=== PATIENT | male | born 1980 | race Caucasian/White ===

== ENCOUNTER 2023-08-27 15:17 | Emergency (ER) | payer OTHER, SELFPAY ==
[2023-08-27 15:21] VITALS: BP 144/88; BMI 46.5
--- NOTE | 2023-08-27 15:56 | ED.GENMED ---
History of Present Illness
General
Chief Complaint: Abdominal Pain
Source: patient
Exam Limitations: none
Time Seen by Provider: 08/27/23 15:43
Travel History
Have you had any contact with someone who has COVID-19?: No
Do you have any symptoms of coronavirus? Fever > 100 degrees, chills, cough, shortness of breath, sore throat, loss of taste or smell, muscle aches, or headache?: No
History of Present Illness
History of Present Illness:
42-year-old male presents complaining of hematuria onset today preceded by lower abdominal and lower back pain. The back pain is more on the left side. Lower abdominal pain is intermittent sometimes sharp. Pain is nauseous without vomiting. Does
have history of kidney stones. He remembers is feeling different and never noticed any blood in his urine like this. He is not a smoker. He is on an SSRI for anxiety. No known injury. No change in bowel movements. No other complaints at this
time
Past History
Past History
ED Past Medical History: Other (Kidney stones diagnosed) and Other (desmoid tumors)
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
Social History
Tobacco: Non-smoker
Alcohol: Occasional
Drug: None
Personal:
Living: with family
Employment: Employed
Family History
Family History: Other (Stance); Negative Diabetes, Hypertension, Early CAD, Asthma or Cancer
Phy Exam
Physical Exam
Physical Exam:
General: Well-appearing male no acute respiratory distress
HEENT: Normocephalic atraumatic
Heart: Regular rate and rhythm no murmurs
Lungs: Clear to auscultation bilaterally no wheezing
Abdomen: Soft tender to the suprapubic and left lower quadrant. No guarding or rebound normal bowel sounds nondistended no significant costovertebral angle tenderness
Extremities: No cyanosis
Course
Orders/Labs/Results
Orders:
Orders
08/27/23 15:55
CT Abd/pel Without Iv Or Oral Urgent
Comment:
Reason For Exam: hematuria, lower abdominal pain
Ketorolac [Toradol] 30 mg IV NOW STA
08/27/23 16:01
Complete Blood Count/With Diff Urgent
Comprehensive Metabolic Panel Urgent
Urinalysis Reflex To Culture Urgent
Date Specimen was Collected: 08/27/23
Time Specimen was Collected: 15:59
Urine Microscopic Reflex Cult Urgent
Urine Culture Urgent
PEDRO Source: U
Specimen Description:
Date Specimen was Collected: 08/27/23
Time Specimen was Collected: 15:59
Abnormal Lab Results
08/27/23
16:01
Absolute Lymphs (auto) 1.1 L 10^3/uL
(1.2-3.4)
Lymphocytes % 19.0 L %
(20.5-51.1)
Monocytes % 9.7 H %
(1.7-9.3)
Glucose 103 H mg/dl
(70-99)
Urine Ketones Trace A
(Negative)
Ur Occult Blood Reflex 4+ A
(Negative)
Urine Bilirubin 1+ A
(Negative)
Urine Urobilinogen 2+ A
(Neg - 1+)
Leukocyte Esterase Rfl 1+ A
(Negative)
Urine RBC >100 A /HPF
(0-2)
Urine Albumin (Reflex) 2+ A
(Neg - Trace)
08/27/23 16:01
08/27/23 16:01
Vital Signs
Initial and Last Documented VS:
Initial Vital Signs
Temp Pulse Resp BP Pulse Ox
98.6 F 92 16 144/88 96
08/27/23 15:21 08/27/23 15:21 08/27/23 15:21 08/27/23 15:21 08/27/23 15:21
Last Documented Vital Signs
Temp Pulse Resp BP Pulse Ox
98.6 F 92 16 144/88 96
08/27/23 15:21 08/27/23 15:21 08/27/23 15:21 08/27/23 15:21 08/27/23 15:21
MDM/Problems Addressed
Differential Diagnosis Includes:
Dark urine likely hematuria. Consider cystitis versus kidney stone. Lower abdominal pain. Consider diverticulitis versus renal colic. Patient is not a smoker.
Will run urinalysis. Check labs and do CT. Toradol ordered for symptoms
*Critical Care Note
Total Time (30-74mins, 75-104mins- exclusive of procedures): Not Applicable
Update Note
Update Note:
Patient reexamined feeling better. Urinalysis with hematuria but no sign of infection. Labs reviewed with normal kidney functions. CT demonstrates 4 mm stone at the right UPJ. Suspect hematuria may be related to the kidney stone. Either way
would recommend close follow-up with urology to ensure resolution of the hematuria. Will send prescription to pharmacy electronically. Return precautions were given.
ED Attending Note
-
Portions of this chart may have been created with voice recognition software.� Occasional wrong word or��sound alike� substitutions may have occurred due to the inherent limitations of voice recognition software.
Discharge Plan
Departure
Patient Disposition: Home (Routine Discharge)
Date of Disposition: 08/27/23
Time of Disposition: 17:01
Patient with high blood pressure during this ER visit?: No
Discharge Problem:
Kidney stone
Instructions: Kidney Stone, Adult ED
Prescriptions:
New
hydrocodone-acetaminophen 5-325 mg tablet
1 tab PO Q8H PRN (Reason: Pain) Qty: 10 0RF
tamsulosin [Flomax] 0.4 mg capsule
0.4 mg PO DAILY Qty: 14 0RF
ondansetron 4 mg tablet,disintegrating
4 mg PO Q8H PRN (Reason: nausea and vomiting) Qty: 10 0RF
No Action
escitalopram oxalate [Lexapro] 20 mg Tablet
20 mg PO DAILY
Referrals:
Lux Hinojosa MD [Family Provider] -
Loy Garcia MD [Active] -
Activity Restrictions/Additional Instructions:
Drink plenty fluids. Use prescribed medicine as directed. Please return here for increasing pain vomiting fever or other concerning finding. Otherwise follow-up with urology to ensure resolution of blood in the urine
Interventions
Interventions:
*Risk Screen - Suicide Last Done: 08/27/23 15:21
*Neglect/Abuse Screening Last Done: 08/27/23 15:21
ED- Fall Risk Assessment Last Done: 08/27/23 16:12
*ED COVID-19 Vaccine History Last Done: 08/27/23 15:21
[facility]-Cmprdf-Vobmzidech Assessment Last Done: 08/27/23 16:12
[2023-08-27] MEDS: TORADOL 30 MG IV (16:04)
[2023-08-27 16:15] LABS: % Basophils 0.5 % (0-2); % Eosinophils 2.1 % (0-6); % Immature Granulocytes 0.2 % (0-0.5); % Monocytes 9.7 % (1.7-9.3); % Neutrophils 68.5 % (42.2-75.2); Absolute Eosinophils 0.1 10^3/uL (0-0.7); Absolute Lymphocytes 1.1 10^3/uL (1.2-3.4); Absolute Monocytes 0.6 10^3/uL (0.1-0.6); Absolute Neutrophils 3.9 10^3/uL (1.4-6.5); Hematocrit 45.3 % (39.0-52.0); Mean Corp Hgb Conc. 35.3 g/dL (33.0-37.0); Mean Corpuscular Hgb 29.7 pg (27.0-31.0); Mean Corpuscular Volume 84.2 fL (80.0-94.0); Mean Platelet Volume 9.7 fL (7.4-10.4); Nucleated Red Blood Cells % 0 % (-); Platelet Count 197 10^3/uL (130-400); Red Blood Cell Count 5.38 10^6/uL (4.70-6.10); Red Cell Dist. Width 12.3 % (11.5-14.5); Urine Albumin 2+ (Neg - Trace); Urine Bilirubin 1+ (Negative); Urine Character Very Cloudy (Clear); Urine Color Red; Urine Glucose Negative (Negative); Urine Ketone Trace (Negative); Urine Leukocyte 1+ (Negative); Urine Nitrite Negative (Negative); Urine Occult Blood 4+ (Negative); Urine Urobilinogen 2+ (Neg - 1+); Urine pH 6.5 (5.0-9.0); White Blood Cell Count 5.7 10^3/uL (4.8-10.8)
[2023-08-27 16:20] LABS: Urine Red Blood Cell >100 /HPF (0-2); Urine Squamous Cell 0-2 /LPF (Few)
[2023-08-27 16:31] LABS: ALT (SGPT) 40 U/L (0-50); AST (SGOT) 29 U/L (17-59); Albumin 4.1 g/dl (3.5-5.0); Alkaline Phosphatase 75 U/L (38-126); Blood Urea Nitrogen 11 mg/dl (9-20); Calcium 9.2 mg/dl (8.4-10.2); Carbon Dioxide 24 mmol/L (22-30); Chloride 105 mmol/L (98-107); Estimated Creatinine Clearance > 125 ml/min; Glucose 103 mg/dl (70-99); Potassium 3.8 mmol/L (3.5-5.1); Sodium 139 mmol/L (135-145); Total Bilirubin 0.7 mg/dl (0.2-1.3); Total Protein 6.5 g/dl (6.3-8.2); eGFR > 60.00
== END 2023-08-27 17:42 | disposition home or self-care (01) ==
LOC: EMR 15:17
PROVIDERS: Physician Assistant; EMERGENCY PHYSICIAN Emergency Medicine; FAMILY PHYSICIAN Family Medicine
DX: N20.2 Calculus of kidney with calculus of ureter (principal); M54.50 Low back pain, unspecified; F41.9 Anxiety disorder, unspecified; Z82.49 Family history of ischemic heart disease and other diseases of the circulatory system; Z87.442 Personal history of urinary calculi
CPT/HCPCS: 99284; 96374; 74176; 80053; 81003; 81015; 85025; 87086

== ENCOUNTER 2023-09-20 09:22 | Emergency (ER) | payer OTHER, SELFPAY ==
[2023-09-20 09:32] VITALS: BP 124/87
[2023-09-20 10:02] LABS: % Basophils 0.4 % (0-2); % Eosinophils 2.2 % (0-6); % Immature Granulocytes 0.4 % (0-0.5); % Lymphocytes 15.4 % (20.5-51.1); % Monocytes 8.8 % (1.7-9.3); % Neutrophils 72.8 % (42.2-75.2); Absolute Eosinophils 0.2 10^3/uL (0-0.7); Absolute Monocytes 0.6 10^3/uL (0.1-0.6); Absolute Neutrophils 4.8 10^3/uL (1.4-6.5); Mean Corp Hgb Conc. 36.2 g/dL (33.0-37.0); Mean Corpuscular Hgb 30.5 pg (27.0-31.0); Mean Corpuscular Volume 84.2 fL (80.0-94.0); Mean Platelet Volume 9.6 fL (7.4-10.4); Nucleated Red Blood Cells % 0 % (-); Platelet Count 194 10^3/uL (130-400); Red Blood Cell Count 5.58 10^6/uL (4.70-6.10); Red Cell Dist. Width 12.3 % (11.5-14.5); White Blood Cell Count 6.7 10^3/uL (4.8-10.8)
--- NOTE | 2023-09-20 10:14 | ED.GENMED ---
History of Present Illness
General
Chief Complaint: Flank Pain
Source: patient
Time Seen by Provider: 09/20/23 10:08
Travel History
Have you had any contact with someone who has COVID-19?: No
Do you have any symptoms of coronavirus? Fever > 100 degrees, chills, cough, shortness of breath, sore throat, loss of taste or smell, muscle aches, or headache?: No
History of Present Illness
History of Present Illness:
42-year-old male presenting the emergency department for evaluation of right-sided flank pain that began acutely around 8 PM yesterday feeling similar to previous history of kidney stones, this morning pain continued and worsened described to be a
constant aching sensation with intermittent sharper bursts of pain, currently 8 out of 10, did not take anything for pain this morning. He notes associated nausea with 1 episode of nonbloody nonbilious emesis, urinary frequency/urgency but no
dysuria or hematuria, testicular pain or edema, fevers, chills, rigors or any other concerns. Patient states he was here last month for similar presentation and was diagnosed with kidney stones and was also found to have a stone in the right kidney
as well.
Past History
Past History
ED Past Medical History: Other (Kidney stones diagnosed) and Other (desmoid tumors)
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
Social History
Tobacco: Non-smoker
Alcohol: Occasional
Drug: None
Personal:
Living: with family
Employment: Employed
Family History
Family History: Other (Stance); Negative Diabetes, Hypertension, Early CAD, Asthma or Cancer
Review of Systems
Review of Systems
All Other Systems: ROS reviewed and negative except as documented in HPI and ROS
Phy Exam
Physical Exam
Physical Exam:
GENERAL: Alert , appears uncomfortable and unable to sit still
EYE: Clear conjunctiva
NECK: Supple
ENT: o/p clr, mmm.
ABDOMEN: Soft, without focal tenderness, no r/g, right-sided flank tenderness
NEUROLOGICAL: Alert and oriented,
SKIN: Warm and dry, skin intact.
MUSCULOSKELETAL: No edema, well perfused.
PSYCH: Normal and appropriate interaction.
Scores
Heart Failure Risk
Heart Failure Risk Score: Not Applicable
Heart Score for Chest Pain Patients
STEMI patient?: Not applicable
Withdrawal Assessment of Alcohol
Withdrawal Assessment Completed?: Not applicable
Course
Orders/Labs/Results
Orders:
Orders
09/20/23 09:45
Complete Blood Count/With Diff Urgent
Comprehensive Metabolic Panel Urgent
09/20/23 10:13
CT Abd/pel Without Iv Or Oral Urgent
Comment:
Reason For Exam: right flank pain, hx stones
0.9% Sodium Chloride 1000 ml [Nss] 1,000 ml IV BOLUS
Ketorolac [Toradol] 30 mg IV NOW STA
Ondansetron Injectable [Zofran] 4 mg IV NOW STA
09/20/23 10:29
Urinalysis Reflex To Culture Urgent
Date Specimen was Collected: 09/20/23
Time Specimen was Collected: 09:37
Urine Microscopic Reflex Cult Urgent
09/20/23 11:27
Morphine Sulfate 4 mg IV NOW STA
Abnormal Lab Results
09/20/23 09/20/23
09:45 10:29
Absolute Lymphs (auto) 1.0 L 10^3/uL
(1.2-3.4)
Lymphocytes % 15.4 L %
(20.5-51.1)
Chloride 108 H mmol/L
(98-107)
Glucose 107 H mg/dl
(70-99)
Urine Ketones Trace A
(Negative)
Ur Occult Blood Reflex 4+ A
(Negative)
Urine Bilirubin 1+ A
(Negative)
Leukocyte Esterase Rfl Trace A
(Negative)
Urine RBC 16-20 A /HPF
(0-2)
Urine Bacteria (Reflex) Few A
(Negative)
09/20/23 09:45
09/20/23 09:45
Vital Signs
Initial and Last Documented VS:
Initial Vital Signs
Temp Pulse Resp BP Pulse Ox
97.8 F 112 16 124/87 97
09/20/23 09:32 09/20/23 09:32 09/20/23 09:32 09/20/23 09:32 09/20/23 09:32
Last Documented Vital Signs
Temp Pulse Resp BP Pulse Ox
97.8 F 72 16 124/87 98
09/20/23 09:32 09/20/23 11:34 09/20/23 11:34 09/20/23 09:32 09/20/23 11:34
MDM/Problems Addressed
Differential Diagnosis Includes:
Renal/ureteral colic, less concern for cystitis or pyelonephritis, musculoskeletal etiology
MDM/Problems Addressed:
42-year-old male present emergency department for evaluation of sudden onset right flank pain, similar to previous episodes of kidney stones in the past. Patient had nausea and vomiting accompanied with urinary frequency/urgency this morning. Has
yet to take anything for pain. Will treat with Toradol, Zofran and fluids. Lab work and urinalysis were ordered from triage. CT of the abdomen pelvis ordered as well.
*Radiology
Radiology exam reviewed: radiology read reviewed
*Pulse Oximetry
Patient hypoxic: no
*Critical Care Note
Total Time (30-74mins, 75-104mins- exclusive of procedures): Not Applicable
Data Reviewed
Review of Other/Old Records Reveals: Labs, Records and Radiology Studies
Source: patient
Comment
Comment:
On reevaluation patient still notes some discomfort following Toradol although does note some improvement. CT scan did show a 6 mm UPJ stone with mild hydronephrosis but there is no evidence for renal dysfunction. Will treat with additional 4 mg
of morphine and reassess following.
Patient Management
Escalation/DeEscalation of care consider admission/obs:
Following morphine patient's pain is significantly improved and he feels well to be discharged home. Prescriptions for naproxen, oxycodone and Flomax were sent to pharmacy. He will follow-up with his urologist as needed. Aware of return
precautions emergency department but otherwise stable for discharge home.
ED Attending Note
-
Portions of this chart may have been created with voice recognition software.� Occasional wrong word or��sound alike� substitutions may have occurred due to the inherent limitations of voice recognition software.
Discharge Plan
Departure
Patient Disposition: Home (Routine Discharge)
Date of Disposition: 09/20/23
Time of Disposition: 12:11
Patient with high blood pressure during this ER visit?: No
Discharge Problem:
Ureterolithiasis
Instructions: Kidney Stones (DC)
Prescriptions:
New
naproxen 500 mg tablet
500 mg PO BID PRN (Reason: Pain) Qty: 20 0RF
tamsulosin [Flomax] 0.4 mg capsule
0.4 mg PO DAILY Qty: 20 0RF
oxycodone 5 mg tablet
5 mg PO Q6H PRN (Reason: Pain) Qty: 10 0RF
No Action
escitalopram oxalate [Lexapro] 20 mg Tablet
20 mg PO DAILY
hydrocodone-acetaminophen 5-325 mg tablet
1 tab PO Q8H PRN (Reason: Pain) Qty: 10 0RF
tamsulosin [Flomax] 0.4 mg capsule
0.4 mg PO DAILY Qty: 14 0RF
ondansetron 4 mg tablet,disintegrating
4 mg PO Q8H PRN (Reason: nausea and vomiting) Qty: 10 0RF
Referrals:
Lux Hinojosa MD [Family Provider] -
Interventions
Interventions:
*Risk Screen - Suicide Last Done: 09/20/23 09:32
*General Assessment Last Done: 09/20/23 09:32
*Neglect/Abuse Screening Last Done: 09/20/23 09:32
[facility]-Huhbum-Jszpskavyo Assessment Last Done: 09/20/23 10:25
ED-Male Genitourinary Assessment Last Done: 09/20/23 10:25
Discharge Date and Time
Print Language: LIBERIAN
[2023-09-20 10:15] LABS: ALT (SGPT) 46 U/L (0-50); AST (SGOT) 25 U/L (17-59); Albumin 4.3 g/dl (3.5-5.0); Alkaline Phosphatase 91 U/L (38-126); Blood Urea Nitrogen 15 mg/dl (9-20); Calcium 9.4 mg/dl (8.4-10.2); Carbon Dioxide 23 mmol/L (22-30); Chloride 108 mmol/L (98-107); Glucose 107 mg/dl (70-99); Potassium 3.9 mmol/L (3.5-5.1); Sodium 137 mmol/L (135-145); Total Protein 6.8 g/dl (6.3-8.2); eGFR > 60.00
[2023-09-20] MEDS: NSS 1000 IV (10:30)
[2023-09-20] MEDS: TORADOL 30 MG IV (10:30)
[2023-09-20] MEDS: ZOFRAN 4 MG IV (10:30)
[2023-09-20 10:40] LABS: Urine Albumin Trace (Neg - Trace); Urine Bilirubin 1+ (Negative); Urine Character Slightly Cloudy (Clear); Urine Color Yellow; Urine Glucose Negative (Negative); Urine Ketone Trace (Negative); Urine Leukocyte Trace (Negative); Urine Nitrite Negative (Negative); Urine Occult Blood 4+ (Negative); Urine Urobilinogen Negative (Neg - 1+)
[2023-09-20 10:51] LABS: Urine Bacteria Few (Negative); Urine Mucus Many; Urine Red Blood Cell 16-20 /HPF (0-2)
[2023-09-20] MEDS: MORPHINE SULFATE 4 MG IV (11:31)
== END 2023-09-20 13:35 | disposition home or self-care (01) ==
LOC: EMR 09:22
PROVIDERS: EMERGENCY PHYSICIAN Emergency Medicine; FAMILY PHYSICIAN Family Medicine
DX: N13.2 Hydronephrosis with renal and ureteral calculous obstruction (principal); Z87.442 Personal history of urinary calculi
CPT/HCPCS: 99284; 96374; 96375 ×2; 96361; 74176; 80053; 81003; 81015; 85025

== ENCOUNTER 2023-09-25 18:27 | Emergency (ER) | payer OTHER, SELFPAY ==
[2023-09-25] VITALS (7 sets, daily range): BP systolic 134–183; BP diastolic 76–115; BMI 44.3
--- NOTE | 2023-09-25 18:59 | ED.GENMED ---
History of Present Illness
General
Chief Complaint: Flank Pain
Source: patient
Time Seen by Provider: 09/25/23 18:42
Travel History
Have you had any contact with someone who has COVID-19?: No
Do you have any symptoms of coronavirus? Fever > 100 degrees, chills, cough, shortness of breath, sore throat, loss of taste or smell, muscle aches, or headache?: No
History of Present Illness
History of Present Illness:
42-year-old male presents to the emergency room complaining of right flank pain. Patient was actually here in the emergency room about 1 week ago with right flank pain. At that time he was found to have a 6mm stone at the right UPJ. The pain
persisted for couple days but went away only to return again yesterday. No fever or chills. Patient was also seen here in the emergency room about 1 month ago with right flank pain. That time he was found to have a 4 mm stone at the UPJ. Patient
does have an appointment with urology this coming Tuesday. He took ibuprofen for pain yesterday. Nothing today.
Past History
Past History
ED Past Medical History: Other (Kidney stones diagnosed) and Other (desmoid tumors)
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
Social History
Tobacco: Non-smoker
Alcohol: Occasional
Drug: None
Personal:
Living: with family
Employment: Employed
Family History
Family History: Other (Stance); Negative Diabetes, Hypertension, Early CAD, Asthma or Cancer
Phy Exam
Physical Exam
Physical Exam:
General: Awake, Alert, Oriented X3. No acute distress.
Vitals: unremarkable
Head: Atraumatic
Eyes: Pupils equal, EOMI
Throat: Airway intact, no exudates
Neck: Trachea midline
Lungs: Clear and equal b/l
Heart: Regular rate, no murmurs
Abd: Soft, mild right upper abdominal tenderness, No pulsatile mass
Back: Positive right CVA tenderness to percussion
Neuro: Nonfocal
Skin: Warm, dry, no rash
Extremities: pulses equal b/l, no edema
Course
Orders/Labs/Results
Orders:
Orders
09/25/23 18:55
0.9% Sodium Chloride 500 ml [Nss] 500 ml IV BOLUS
Ketorolac [Toradol] 15 mg IV NOW STA
CR Abdomen - 1 View Urgent
Comment:
Reason For Exam: right flank pain
09/25/23 18:56
US Renal With Bladder Urgent
Comment: bladder not full ok, looking at ureteral jets
Reason For Exam: right flank pain
09/25/23 19:13
Basic Metabolic Panel Urgent
Complete Blood Count/With Diff Urgent
Urinalysis Reflex To Culture Urgent
Date Specimen was Collected: 09/25/23
Time Specimen was Collected: 18:58
09/25/23 20:42
HYDROmorphone [Dilaudid] 1 mg IV NOW STA
09/25/23 20:45
Tamsulosin [Flomax] 0.4 mg PO NOW STA
Abnormal Lab Results
09/25/23
19:13
Monocytes % 10.1 H %
(1.7-9.3)
09/25/23 19:13
09/25/23 19:13
Vital Signs
Initial and Last Documented VS:
Initial Vital Signs
Temp Pulse Resp BP Pulse Ox
98.2 F 67 16 183/115 99
09/25/23 18:28 09/25/23 18:28 09/25/23 18:28 09/25/23 18:28 09/25/23 18:28
Last Documented Vital Signs
Temp Pulse Resp BP Pulse Ox
98.2 F 67 16 134/81 97
09/25/23 18:28 09/25/23 21:05 09/25/23 21:05 09/25/23 21:05 09/25/23 21:05
MDM/Problems Addressed
Differential Diagnosis Includes:
Kidney stone, cholecystitis, UTI, infected stone
MDM/Problems Addressed:
Patient presents with right flank pain for the third time the past couple months. CT performed in August showed what was done described as a 4 mm stone at the UPJ. CAT scan a week ago showed what is described as a 6 mm stone at the UPJ. I suspect
this is in fact the same stone as no other stones were seen in the right kidney on the CT in August.
The CT did not show any additional stones in the kidney. Size difference is likely explained by imaging technique. Will obtain labs to evaluate for signs of infected stone, send renal function. Will provide analgesia.
Labs are unremarkable. Ultrasound shows right hydro. Stones not visible on a flatplate. However it is quite apparent that the patient has been experiencing symptoms from the same stone over the past month. Fortunately there is no evidence of an
acute infected stone at this time. Patient has an appointment to follow with urology this week. Will discharge with adequate analgesia and Flomax to make it to that appointment. He understands to return if he has a fever.
*Radiology
Radiology exam reviewed: radiology read reviewed
*Pulse Oximetry
Patient hypoxic: no
*Critical Care Note
Total Time (30-74mins, 75-104mins- exclusive of procedures): Not Applicable
Data Reviewed
Review of Other/Old Records Reveals: Radiology Studies (From August and from 1 week ago)
Patient Management
Social determinants of health affecting care: Strong social support
ED Attending Note
-
Portions of this chart may have been created with voice recognition software.� Occasional wrong word or��sound alike� substitutions may have occurred due to the inherent limitations of voice recognition software.
Discharge Plan
Departure
Patient Disposition: Home (Routine Discharge)
Date of Disposition: 09/25/23
Time of Disposition: 20:43
Patient with high blood pressure during this ER visit?: Yes
Condition: Good
Discharge Problem:
Kidney stone on left side
Instructions: Kidney Stones (DC), BLOOD PRESSURE
Prescriptions:
New
oxycodone 5 mg tablet
5 mg PO Q6H PRN (Reason: Pain) Qty: 12 0RF
No Action
escitalopram oxalate [Lexapro] 20 mg Tablet
20 mg PO DAILY
hydrocodone-acetaminophen 5-325 mg tablet
1 tab PO Q8H PRN (Reason: Pain) Qty: 10 0RF
tamsulosin [Flomax] 0.4 mg capsule
0.4 mg PO DAILY Qty: 14 0RF
ondansetron 4 mg tablet,disintegrating
4 mg PO Q8H PRN (Reason: nausea and vomiting) Qty: 10 0RF
naproxen 500 mg tablet
500 mg PO BID PRN (Reason: Pain) Qty: 20 0RF
tamsulosin [Flomax] 0.4 mg capsule
0.4 mg PO DAILY Qty: 20 0RF
oxycodone 5 mg tablet
5 mg PO Q6H PRN (Reason: Pain) Qty: 10 0RF
Referrals:
Lux Hinojosa MD [Family Provider] -
Activity Restrictions/Additional Instructions:
Keep your appointment with urology on Tuesday even if you are feeling better. Return if you develop a fever.
Interventions
Interventions:
*Risk Screen - Suicide Last Done: 09/25/23 18:28
*General Assessment Last Done: 09/25/23 19:47
*Neglect/Abuse Screening Last Done: 09/25/23 18:28
ED- Fall Risk Assessment Last Done: 09/25/23 19:47
*ED COVID-19 Vaccine History Last Done: 09/25/23 18:28
*Nursing Disposition Last Done: 09/25/23 21:17
[facility]-Rcbpaf-Hldjzufrau Assessment Last Done: 09/25/23 19:47
ED-Male Genitourinary Assessment Last Done: 09/25/23 19:47
Discharge Date and Time
Discharge Date/Time: 09/25/23 21:19
Print Language: TAJIK
[2023-09-25] MEDS: TORADOL 15 MG IV (19:08)
[2023-09-25] MEDS: NSS 500 IV (19:12)
[2023-09-25 19:19] LABS: % Basophils 0.8 % (0-2); % Eosinophils 5.7 % (0-6); % Immature Granulocytes 0.2 % (0-0.5); % Lymphocytes 25.2 % (20.5-51.1); % Monocytes 10.1 % (1.7-9.3); Absolute Eosinophils 0.3 10^3/uL (0-0.7); Absolute Lymphocytes 1.2 10^3/uL (1.2-3.4); Absolute Monocytes 0.5 10^3/uL (0.1-0.6); Absolute Neutrophils 2.8 10^3/uL (1.4-6.5); Hematocrit 42.2 % (39.0-52.0); Mean Corp Hgb Conc. 35.5 g/dL (33.0-37.0); Mean Corpuscular Hgb 30.2 pg (27.0-31.0); Mean Corpuscular Volume 84.9 fL (80.0-94.0); Mean Platelet Volume 9.6 fL (7.4-10.4); Nucleated Red Blood Cells % 0 % (-); Platelet Count 151 10^3/uL (130-400); Red Blood Cell Count 4.97 10^6/uL (4.70-6.10); Red Cell Dist. Width 12.2 % (11.5-14.5); Urine Albumin Negative (Neg - Trace); Urine Bilirubin Negative (Negative); Urine Character Clear (Clear); Urine Color Yellow; Urine Glucose Negative (Negative); Urine Ketone Negative (Negative); Urine Leukocyte Negative (Negative); Urine Nitrite Negative (Negative); Urine Occult Blood Negative (Negative); Urine Specific Gravity 1.015 (<1.030); Urine Urobilinogen 1+ (Neg - 1+); White Blood Cell Count 4.8 10^3/uL (4.8-10.8)
[2023-09-25 19:37] LABS: Blood Urea Nitrogen 20 mg/dl (9-20); Calcium 9.2 mg/dl (8.4-10.2); Carbon Dioxide 28 mmol/L (22-30); Chloride 107 mmol/L (98-107); Estimated Creatinine Clearance > 125 ml/min; Glucose 95 mg/dl (70-99); Sodium 138 mmol/L (135-145); eGFR > 60.00
[2023-09-25] MEDS: FLOMAX 0.400000000000000022 MG PO (20:59)
[2023-09-25] MEDS: DILAUDID 1 MG IV (21:00)
== END 2023-09-25 21:19 | disposition home or self-care (01) ==
LOC: EMR 18:27
PROVIDERS: EMERGENCY PHYSICIAN Emergency Medicine; FAMILY PHYSICIAN Family Medicine
DX: N20.2 Calculus of kidney with calculus of ureter (principal); R03.0 Elevated blood-pressure reading, without diagnosis of hypertension; Z87.442 Personal history of urinary calculi
CPT/HCPCS: 99285; 96374; 96375; 96361; 74018; 76770; 80048; 81003; 85025

== ENCOUNTER 2023-09-29 06:25 | Day surgery (SDC) | payer OTHER, SELFPAY ==
[2023-09-29] VITALS (8 sets, daily range): BP systolic 103–130; BP diastolic 50–86
[2023-09-29] MEDS: NORMOSOL-R 1000 IV (08:35)
[2023-09-29] MEDS: Pyridium 200 MG PO (10:49)
[2023-09-29] MEDS: FLOMAX 0.400000000000000022 MG PO (10:49)
[2023-09-29] MEDS: DILAUDID 0.5 MG IV (10:50)
[2023-10-04 11:18] LABS: Stone Analysis Mass 27 mg
== END 2023-09-29 11:45 | disposition home or self-care (01) ==
LOC: SDS 06:25
PROVIDERS: ATTENDING PHYSICIAN Specialist
DX: N20.1 Calculus of ureter (principal)
CPT/HCPCS: 52356; 74420; 76000; 82365; C1758; C1894; C2617

== ENCOUNTER 2024-03-27 20:21 | Emergency (ER) | payer OTHER, SELFPAY ==
[2024-03-27 20:35] VITALS: BP 146/94
[2024-03-27 20:58] LABS: % Basophils 0.6 % (0-2); % Eosinophils 1.4 % (0-6); % Immature Granulocytes 0.4 % (0-0.5); % Lymphocytes 16.1 % (20.5-51.1); % Monocytes 9.7 % (1.7-9.3); % Neutrophils 71.8 % (42.2-75.2); Absolute Basophils 0.1 10^3/uL (0-0.2); Absolute Eosinophils 0.1 10^3/uL (0-0.7); Absolute Lymphocytes 1.4 10^3/uL (1.2-3.4); Absolute Monocytes 0.8 10^3/uL (0.1-0.6); Hematocrit 47.6 % (39.0-52.0); Hemoglobin 16.7 g/dL (13.0-18.0); Mean Corp Hgb Conc. 35.1 g/dL (33.0-37.0); Mean Corpuscular Hgb 29.8 pg (27.0-31.0); Mean Platelet Volume 9.4 fL (7.4-10.4); Nucleated Red Blood Cells % 0 % (-); Platelet Count 215 10^3/uL (130-400); Red Cell Dist. Width 12.7 % (11.5-14.5); Urine Albumin Negative (Neg - Trace); Urine Bilirubin Negative (Negative); Urine Character Clear (Clear); Urine Color Yellow; Urine Glucose Negative (Negative); Urine Ketone Negative (Negative); Urine Leukocyte Negative (Negative); Urine Nitrite Negative (Negative); Urine Occult Blood Negative (Negative); Urine Specific Gravity 1.025 (<1.030); Urine Urobilinogen Negative (Neg - 1+); White Blood Cell Count 8.4 10^3/uL (4.8-10.8)
[2024-03-27 21:31] LABS: ALT (SGPT) 47 U/L (0-50); AST (SGOT) 24 U/L (17-59); Albumin 4.7 g/dl (3.5-5.0); Alkaline Phosphatase 67 U/L (38-126); Blood Urea Nitrogen 14 mg/dl (9-20); Calcium 9.9 mg/dl (8.4-10.2); Carbon Dioxide 27 mmol/L (22-30); Chloride 102 mmol/L (98-107); Glucose 71 mg/dl (70-99); Potassium 4.3 mmol/L (3.5-5.1); Sodium 143 mmol/L (135-145); Total Bilirubin 0.8 mg/dl (0.2-1.3); Total Protein 7.2 g/dl (6.3-8.2); eGFR > 60.00
--- NOTE | 2024-03-27 23:19 | ED.GENMED ---
History of Present Illness
General
Chief Complaint: Flank Pain
Time Seen by Provider: 03/27/24 22:54
History of Present Illness
History of Present Illness:
Patient is a 40-year-old male with history of kidney stones presenting to the emergency department flank pain. Patient states that today he developed left-sided flank pain that radiated to his groin. Has been intermittent. Has been having some
nausea. No vomiting. No prior abdominal surgeries. No fevers. No chills.
Past History
Past History
ED Past Medical History: Other (Kidney stones diagnosed) and Other (desmoid tumors)
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
Social History
Tobacco: Non-smoker
Alcohol: Occasional
Drug: None
Personal:
Living: with family
Employment: Employed
Family History
Family History: Other (Stance); Negative Diabetes, Hypertension, Early CAD, Asthma or Cancer
Phy Exam
Physical Exam
Physical Exam:
GENERAL: in no acute distress
HEENT: normocephalic, extraocular movements intact, moist oral mucosa
NECK: normal inspection
RESPIRATORY: no respiratory distress, clear to auscultation bilaterally
CARDIOVASCULAR: regular rate and rhythm
ABDOMEN/: soft, non-distended, right lower quadrant tenderness to palpation, no rebound or guarding
EXTREMITIES: non-tender, no edema/swelling
NEUROLOGIC: awake and alert, moves all extremities
SKIN: warm
Course
Orders/Labs/Results
Orders:
Orders
03/27/24 20:49
Complete Blood Count/With Diff Urgent
Comprehensive Metabolic Panel Urgent
Urinalysis Urgent
Date Specimen was Collected: 03/27/24
Time Specimen was Collected: 20:38
03/27/24 22:58
CT Abd/pelvis W Iv Cont Urgent
Comment:
Reason For Exam: rlq pain
03/27/24 23:02
Ketorolac [Toradol] 15 mg IV NOW STA
Ondansetron Injectable [Zofran] 4 mg IV NOW STA
03/28/24 02:08
Ketorolac [Toradol] 15 mg .ROUTE .STK-MED ONE
03/28/24 02:11
Ketorolac [Toradol] 15 mg IV NOW STA
Abnormal Lab Results
03/27/24
20:49
Absolute Monos (auto) 0.8 H 10^3/uL
(0.1-0.6)
Lymphocytes % 16.1 L %
(20.5-51.1)
Monocytes % 9.7 H %
(1.7-9.3)
03/27/24 20:49
03/27/24 20:49
Vital Signs
Initial and Last Documented VS:
Initial Vital Signs
Temp Pulse Resp BP Pulse Ox
98.6 F 110 24 146/94 98
03/27/24 20:35 03/27/24 20:35 03/27/24 20:35 03/27/24 20:35 03/27/24 20:35
Last Documented Vital Signs
Temp Pulse Resp BP Pulse Ox
98.6 F 90 16 133/91 98
03/27/24 20:35 03/28/24 02:11 03/27/24 23:30 03/28/24 02:11 03/28/24 02:11
MDM/Problems Addressed
Differential Diagnosis Includes:
43-year-old male with history of kidney stones presenting to the emergency department with right-sided flank pain that radiated to his groin. Vitals unremarkable and exam does show right lower quadrant tenderness. Likely kidney stone however it is
unusual that he is having right lower quadrant tenderness to palpation so could be appendicitis. Will check blood work urine and CT scan with IV contrast. Will give Toradol and Zofran.
*Critical Care Note
Total Time (30-74mins, 75-104mins- exclusive of procedures): Not Applicable
Update Note
Update Note:
On reevaluation pain has improved after Toradol. Lab work and urine unremarkable. Pending CT scan at this time. Patient signed out to oncoming attending
ED Attending Note
-
Portions of this chart may have been created with voice recognition software.� Occasional wrong word or��sound alike� substitutions may have occurred due to the inherent limitations of voice recognition software.
Discharge Plan
Departure
Prescriptions:
No Action
escitalopram oxalate [Lexapro] 20 mg Tablet
20 mg PO DAILY
tamsulosin [Flomax] 0.4 mg capsule
0.4 mg PO DAILY Qty: 14 0RF
Referrals:
Lux Hinojosa MD [Family Provider] -
Interventions
Interventions:
*Risk Screen - Suicide Last Done: 03/27/24 20:35
*General Assessment Last Done: 03/27/24 22:45
*Neglect/Abuse Screening Last Done: 03/27/24 20:35
*ED COVID-19 Vaccine History Last Done: 03/27/24 22:45
[facility]-Uwepar-Idwviqkfpc Assessment Last Done: 03/27/24 22:45
ED-Male Genitourinary Assessment Last Done: 03/27/24 22:45
Discharge Date and Time
Print Language: YAKUT
[2024-03-27] MEDS: ZOFRAN 4 MG IV (23:20)
[2024-03-27] MEDS: TORADOL 15 MG IV (23:20)
[2024-03-27 23:30] VITALS: BP 114/63
[2024-03-28 02:11] VITALS: BP 133/91
[2024-03-28] MEDS: TORADOL 15 MG IV (02:11)
== END 2024-03-28 02:38 | disposition home or self-care (01) ==
LOC: EMR 20:21
PROVIDERS: Student in an Organized Health Care Education/Training Program; EMERGENCY PHYSICIAN Student in an Organized Health Care Education/Training Program; FAMILY PHYSICIAN Family Medicine
DX: R10.9 Unspecified abdominal pain (principal); R11.0 Nausea; Z82.49 Family history of ischemic heart disease and other diseases of the circulatory system; Z87.442 Personal history of urinary calculi
CPT/HCPCS: 99284; 74177; 80053; 81003; 85025; Q9967

== ENCOUNTER → 2024-09-20 09:46 | Outpatient (REF) | payer OTHER, SELFPAY | LOC: HWRAD 09:46 | PROVIDERS: ATTENDING PHYSICIAN Specialist; FAMILY PHYSICIAN Family Medicine | DX: M19.011 Primary osteoarthritis, right shoulder (principal) | CPT/HCPCS: 73200 ==